=== PATIENT | male | born 1990 | race Caucasian/White ===

== ENCOUNTER 2019-05-31 16:38 | Emergency (ER) | payer OTHER ==
[~2019-05-31] VITALS: Ht 188 cm; Wt 108.9 kg
[~2019-05-31 16:38] MED LIST: ACHD5005 PO; CEPH500T PO; ONDA4TAB8 SL; SULF1TAB35 PO
--- NOTE | 2019-05-31 17:01 | ED Lower Extremity ---
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 Did not hurt anything else. He is able to walk on it. Denies other injury. Onset: this afternoon Severity: mild Pain/Injury Location: right ankle Method of Injury: twisted Modifying Factors: Improves With Immobilization; Worse With Movement Allergies and Home Medications Allergies Coded Allergies: No Known Drug Allergies (Unverified , 06/02/16) Home Medications Cephalexin 500 Mg Tablet, 500 MG PO QID, (Reported) Hydrocodone Bit/Acetaminophen 1 Each Tablet, 1 EACH PO Q4H PRN for PAIN Prescribed by: ROGELIO SAUL on 06/02/16 1330 Ondansetron 4 Mg Tab.rapdis, 4 MG SL Q4H PRN for NAUSEA/VOMITING Prescribed by: ROGELIO SAUL on 06/02/16 1627 Sulfamethoxazole/Trimethoprim 1 Each Tablet, 1 EACH PO TID Prescribed by: ROGELIO SAUL on 06/02/16 1329 Patient Home Medication List Home Medication List Reviewed: Yes Review of Systems Constitutional: no symptoms reported Respiratory: no symptoms reported Cardiovascular: no symptoms reported Musculoskeletal: joint pain, joint swelling, muscle pain Skin: change in color, rash Past Nwjnruc-Wwtvwn-Xpsddr Hx Past Med/Social Hx: Reviewed Nursing Past Med/Soc Hx Patient Social History Alcohol Use: Rarely Uses Recreational Drug Use: No Smoking Status: Current Everyday Smoker Type Used: Cigarettes Recent Foreign Travel: No Contact w/Someone Who Travel: No Recent Infectious Disease Expo: No Recent Hopitalizations: No Immunizations Up To Date Tetanus Booster (TDap): More than 5yrs PED Vaccines UTD: No Seasonal Allergies Seasonal Allergies: No Past Medical History Surgeries: Yes (ear tubes as baby) Ear Surgery Respiratory: No Cardiac: No Neurological: No Reproductive Disorders: No Gastrointestinal: No Musculoskeletal: No Endocrine: No Cancer: No Psychosocial: Yes Anxiety Integumentary: Yes (warts) Recent Skin Changes Blood Disorders: No Family Medical History Reviewed Nursing Family Hx Physical Exam Vital Signs Vital Signs - First Documented 05/31/19 16:40 Temp 98.7 Pulse 90 Resp 18 B/P (MAP) 138/91 (107) Pulse Ox 97 Capillary Refill : Less Than 3 Seconds Height, Weight, BMI Height: 6'2.00" Weight: 240lbs. oz. 108.793579ht; 24.37 BMI Method:Stated General Appearance: WD/WN, no apparent distress Cardiovascular: regular rate, rhythm, no murmur Respiratory: lungs clear, normal breath sounds Ankles: right ankle pain, right ankle soft tissue tenderness, right ankle swelling Neurologic/Psychiatric: alert, oriented x 3 Skin: warm/dry, rash (erythema and rash to areas around the feet and toes consistent with athlete's foot.) Progress/Results/Core Measures Results/Orders My Orders Orders - GERTRUDE CEDILLO MD Ankle, Right, 3 Views (05/31/19 16:47) Vital Signs/I&O 05/31/19 16:40 Temp 98.7 Pulse 90 Resp 18 B/P (MAP) 138/91 (107) Pulse Ox 97 Blood Pressure Mean: 107 Progress Progress Note : Progress Note Seen and evaluated. X-ray right ankle. Ice pack. Discussed with the patient regarding athlete's foot. Diagnostic Imaging Diagonstic Imaging: Xray Plain Films/CT/US/NM/MRI: ankle Comments NAME: JAVIER [facility] REC#: [id number] PT STATUS: REG ER : 1990 PHYSICIAN: GERTRUDE CEDILLO MD ADMIT DATE: 05/31/19/ER Signed Date of Exam: 05/31/19 ANKLE, RIGHT, 3 VIEWS INDICATION: Fall, posterior right ankle pain FINDINGS: Three views of the right ankle show no fracture, dislocation or other acute bony abnormality. The ankle joint is not widened. There is minimal swelling laterally. IMPRESSION: Swelling. No fracture is seen. Dictated by: Dictated on workstation # [id number] Dict: 05/31/198 Trans: 05/31/191728 Interpreted by: JEAN REDMOND MD Electronically signed by: JEAN REDMOND MD 05/31/191728 Reviewed: Reviewed by Me Departure Impression Primary Impression: Right ankle sprain Qualified Codes: S93.401A - Sprain of unspecified ligament of right ankle, initial encounter Additional Impression: Athletes foot Qualified Codes: B35.3 - Tinea pedis Disposition: 01 HOME, SELF-CARE Condition: Improved Departure-Patient Inst. Decision time for Depature: 17:00 Referrals: [facility] (PCP/Family) Primary Care Physician Patient Instructions: Athlete's Foot (DC), Ankle Sprain (DC) Add. Discharge Instructions: All discharge instructions reviewed with patient and/or family. Voiced understanding. Use [id number] athlete's foot powder per package directions. You may use Jethro wrap and gel splint as needed over the next several days to reduce ankle strain. Use ice packs to affected area 20 minutes per hour as needed to reduce swelling. You should elevate the foot as much as possible over the next couple of days to reduce swelling. You may take ibuprofen 600 mg every 8 hours as needed for pain. You may also take Tylenol/acetaminophen 1000 mg every 8 hours as needed for pain. Return for worse pain, swelling, weakness or other concerns as needed. GERTRUDE CEDILLO MD May 31, 2019 17:01
--- NOTE | 2019-05-31 17:21 | Diagnostic Imaging Report ---
INDICATION: Fall, posterior right ankle pain FINDINGS: Three views of the right ankle show no fracture, dislocation or other acute bony abnormality. The ankle joint is not widened. There is minimal swelling laterally. IMPRESSION: Swelling. No fracture is seen. Dictated by: Dictated on workstation # [id number]
[2019-05-31 17:50] VITALS: BP 138/91
== END 2019-05-31 17:52 | disposition home or self-care (01) ==
LOC: EDUNIT# 16:38 → ER 16:39
DX: S93.401A Sprain of unspecified ligament of right ankle, initial encounter (principal); B35.3 Tinea pedis; F41.9 Anxiety disorder, unspecified; F17.210 Nicotine dependence, cigarettes, uncomplicated; X50.1XXA Overexertion from prolonged static or awkward postures, initial encounter
CPT/HCPCS: 73610

== ENCOUNTER → 2023-08-14 | Outpatient (CLI) | payer OTHER ==
[~2023-08-14] MED LIST changes: -SULF1TAB35 PO; +SULF1TAB38 PO
--- NOTE | 2023-08-14 11:14 | Diagnostic Imaging Report ---
EXAMINATION: Magnetic resonance imaging of the right shoulder without contrast. DATE: August 14, 2023. COMPARISON: None. HISTORY: 33-year-old male, right shoulder pain following injury on July 29, 2023. TECHNIQUE: Magnetic Resonance Imaging sequences were performed of the shoulder without contrast. FINDINGS: ROTATOR CUFF, LIGAMENTS, TENDONS, AND MUSCLES: The supraspinatus, infraspinatus, teres minor, and subscapularis tendons and muscles are intact. There is normal rotator cuff muscle bulk and signal. LONG HEAD OF BICEPS: The biceps labral attachment and long head of the biceps tendon is intact. The long head of the biceps tendon is normally positioned within the bicipital groove. GLENOHUMERAL JOINT: The humeral head is well positioned relative to the glenoid. There is a labral tear extending from near the 12 o'clock position of the biceps labral attachment along the length of the posterior labrum. This extends near the 6 o'clock position of the inferior labrum. There is a multiloculated small paralabral cyst along the length of the posterior labrum. This is over a craniocaudal extent of approximately 30 mm and has an axial extent of roughly 3 x 3 mm. The articular cartilage is grossly intact. There is no joint effusion. ACROMIOCLAVICULAR JOINT: The acromioclavicular joint is normally aligned. The coracoclavicular and coracoacromial ligaments are intact. There are minimal acromioclavicular degenerative changes without undersurface osteophyte. BONE: There is no os acromiale. There is no Hill-Sachs deformity. There is no acute fracture, bone contusion, or evidence of osteonecrosis. BURSAE AND SOFT TISSUES: There is subcutaneous edema superficial to the acromioclavicular joint. IMPRESSION: 1. Labral tear extending from approximately the 12 o'clock position of the biceps labral attachment along the length of the posterior labrum and extending to the 6 o'clock position of the inferior labrum with multiloculated paralabral cyst along the length of the posterior labrum. 2. No identified glenohumeral cartilage defect. 3. Intact rotator cuff and proximal long head of biceps tendon. 4. Minimal acromioclavicular degenerative changes without undersurface osteophyte. Dictated by: Dictated on workstation # [id number]
== END ==
LOC: RAD 08:43
PROVIDERS: ATTEND Nurse Practitioner Family
DX: Z04.2 Encounter for examination and observation following work accident (principal); S46.911D Strain of unspecified muscle, fascia and tendon at shoulder and upper arm level, right arm, subsequent encounter; S43.401D Unspecified sprain of right shoulder joint, subsequent encounter; M62.81 Muscle weakness (generalized); X58.XXXD Exposure to other specified factors, subsequent encounter
CPT/HCPCS: 73221